=== PATIENT | male | born 1995 | race Caucasian/White ===

== ENCOUNTER 2021-01-23 03:10 | Emergency (ER) | payer OTHER ==
[~2021-01-23] VITALS: Ht 172.7 cm; Wt 88.9 kg
[2021-01-23 03:11] VITALS: BP 178/91
[2021-01-23] MEDS ORDERED: TAMSULOSIN 0.4 MG CAP PO ONE (06:15)
[2021-01-23] MEDS ORDERED: FLOM0.4C39 PO (06:17)
== END 2021-01-23 06:26 | disposition home or self-care (01) ==
LOC: M ED 03:10
DX: R31.9 Hematuria, unspecified (principal); R10.9 Unspecified abdominal pain; Z91.013 Allergy to seafood